=== PATIENT | male | born 1985 | race Caucasian/White ===

== ENCOUNTER 2022-10-09 19:10 | Emergency (ER) | payer OTHER, SELFPAY ==
[2022-10-09 19:18] VITALS: BP 161/90; PULSE 86; RESP 20; TEMP 36.9; O2SAT 98; BMI 33.5
--- NOTE | 2022-10-09 19:30 | ED.GENADUL1 ---
HPI - General Adult General Chief complaint: Neuro Symptoms/Deficit Time Seen by Provider: 10/09/22 19:30 Source: patient and family Mode of arrival: walk-in Limitations: no limitations History of Present Illness HPI narrative: 37-year-old male presents her with chief complaint of right upper eyelid and right sided facial droop. Patient's significant other noticed yesterday. 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 Patient states he noticed he has some right-sided eyebrow and eyelid drooping. Slight drooping noted the corner of the mouth. Patient's otherwise alert and oriented no acute distress. States she has ear pain. Related Data Previous Rx's Medication Instructions Recorded amoxicillin 500 mg capsule 500 mg PO BID 10 days #20 caps 10/09/22 Allergies Allergy/AdvReac Type Severity Reaction Status Date / Time No Known Drug Allergies Allergy Verified 10/09/22 19:21 Review of Systems ROS Narrative All Systems are negative except as noted/marked.All systems reviewed and otherwise negative Exam Narrative Exam Narrative: P Nurses note and vital signs reviewed and patient is not hypoxic. General: The patient appears well and in no apparent distress. Patient is resting comfortably on cart. Skin: Warm, dry, no pallor noted. There is no rash noted. Head: Normocephalic, atraumatic Eye: Normal conjunctiva, no drainage, EOMI. PERRL Ears, Nose, Mouth, and Throat: Tympanic membranes reddened, right tympanic membrane chronically perforated no drainage or discharge. Right-sided facial droop with eyebrow eyelid and right corner of mouth involved. Oral mucosa is moist. Nares patent. Mouth without vesicles. Ear canals patent. Cardiovascular: Regular Rate and Rhythm Respiratory: Patient is in no distress, no accessory muscle use, lungs are clear to auscultation, no wheezing, rales or rhonchi Back: non-tender, no CVA tenderness bilaterally to percussion. GI: Normal bowel sounds, no tenderness to palpation, no masses appreciated. No rebound, guarding, or rigidity noted. Musculoskeletal: The patient has no evidence of calf tenderness, no pitting edema, symmetrical pulses noted bilaterally Neurological: A&O x4, normal speech, right-sided facial droop consistent with Todd's palsy, involvement of forehead Psychiatric: Cooperative Constitutional Vital Signs - 24 hr 10/09/22 19:18 Temperature 98.5 F Pulse Rate [Monitor] 86 Respiratory Rate 20 Blood Pressure [Right Arm] 161/90 H Pulse Oximetry 98 Oxygen Delivery Method Room Air Course Vital Signs Vital signs: Vital Signs Temperature 98.5 F 10/09/22 19:18 Pulse Rate 86 10/09/22 19:18 Respiratory Rate 20 10/09/22 19:18 Blood Pressure 161/90 H 10/09/22 19:18 Pulse Oximetry 98 10/09/22 19:18 Oxygen Delivery Method Room Air 10/09/22 19:18 Temperature 98.5 F 10/09/22 19:18 Pulse Rate 86 10/09/22 19:18 Respiratory Rate 20 10/09/22 19:18 Blood Pressure 161/90 H 10/09/22 19:18 Pulse Oximetry 98 10/09/22 19:18 Oxygen Delivery Method Room Air 10/09/22 19:18 Medical Decision Making MDM Narrative Medical decision making narrative: Patient presented here chief complaint right-sided facial droop for the last thirty-six hours. Right side of his forehead corner of his mouth upper eyelid are all involved. Patient's examination is consistent with Todd's palsy. He denies any headache blurred vision. Vital signs are stable other mildly elevated blood pressure. Patient also states he has left ear pain. Right auditory canals consistent with a otitis media. Differential Diagnosis Differential Diagnosis: Transient ischemic attack, stroke, Todd's palsy Discharge Plan Discharge Chief Complaint: Neuro Symptoms/Deficit Clinical Impression: Facial paralysis/[place] palsy, Otitis media Patient Disposition: Home, Self-Care Time of Disposition Decision: 19:41 Prescriptions / Home Meds: New amoxicillin 500 mg capsule 500 mg PO BID 10 Days Qty: 20 0RF Instructions: Todd Palsy (ED), Ear Infection (ED) Stand Alone Forms: Portal Instructions Referrals: Catrachita Orozco MD [Physician] - 1 week Physician,Non-MD Isamar [Primary Care Provider] - 1 week Discharge Date/Time: 10/09/22 19:53
[2022-10-09] MEDS: PREDNISONE 20 MG TABLET 60 MG PO (19:48)
== END 2022-10-09 19:53 | disposition home or self-care (01) ==
PROVIDERS: Emergency Provider Internal Medicine
DX: H66.91 Otitis media, unspecified, right ear (principal); G51.0 Bell's palsy
CPT/HCPCS: 99283